=== PATIENT | female | born 1960 | race Caucasian/White ===

== ENCOUNTER 2020-08-03 11:55 | Inpatient (IN) ==
[~2020-08-03 11:55] MED LIST: Buffered Lidocaine 1% SYRIN 1 ml INTRADERM ONE; Lactated Ringers 1000 ml BAG 1,000 ML IV SCH
[2020-08-03] MEDS ORDERED: Heparin 5000 UNITS/ML 1 mL VIAL ONE (12:16)
[2020-08-03] MEDS ORDERED: Clindamycin 900 MG/D5W BAG 900 MG/50 ML BAG IVPB ONE (12:16)
[2020-08-03] MEDS ORDERED: Buffered Lidocaine 1% SYRIN 1 ml INTRADERM ONE (12:16)
[2020-08-03] MEDS ORDERED: Methylene Blue 0.5 % 50 MG/10 ML AMP IV ONE (13:57)
[2020-08-03] MEDS ORDERED: Bupivacaine 0.25% SDV 30 ML ONE (13:58)
[2020-08-03] MEDS ORDERED: Rocuronium 50 mg VIAL 10 mg/ml 5 ml VIAL (50 mg) ONE ×3 (14:09→16:18)
[2020-08-03] MEDS ORDERED: fentaNYL 250 mcg/5 ml 50 MCG/ML 5 ml VIAL (250 MCG) ONE (14:11)
[2020-08-03] MEDS ORDERED: Midazolam 2 mg/2 ml VIAL 1 mg/ml 2 ml VIAL (2 mg) ONE (14:13)
[2020-08-03] MEDS ORDERED: HYDROmorphone 1 MG/1 ML SYRINGE ONE ×2 (15:30→17:40)
[2020-08-03] MEDS ORDERED: Sugammadex 500 MG/5 ML 5 ml VIAL IV PUSH ONE (16:17)
[2020-08-03] MEDS ORDERED: Ondansetron 4 mg VIAL 2 MG/ML 2 ml VIAL ONE ×2 (16:17→17:42)
[2020-08-03] MEDS ORDERED: Dexamethasone IV 4 MG/ML VIAL 1 ml VIAL ONE (16:17)
[2020-08-03] MEDS ORDERED: fentaNYL 100 mcg/2 ml 50 MCG/ML VIAL ONE (16:44)
[2020-08-03] MEDS ORDERED: fentaNYL 100 mcg/2 ml 50 MCG/ML VIAL IV PRN (17:13)
[2020-08-03] MEDS ORDERED: Naloxone 0.4 mg VIAL 0.4 mg/ml 1 ml VIAL IV PRN (17:13)
[2020-08-03] MEDS ORDERED: HYDROmorphone 1 MG/1 ML SYRINGE IV PRN (17:13)
[2020-08-03] MEDS ORDERED: Ondansetron 4 mg VIAL 2 MG/ML 2 ml VIAL IV PRN ×2 (17:13→17:20)
[2020-08-03] MEDS ORDERED: HYDROmorphone 0.5 MG/0.5 ML SYRINGE IV SLOW PU PRN (17:20)
[2020-08-03] MEDS ORDERED: Dextrose 50% Syringe 50 ml 25 GM/50 ML SYRINGE IV PUSH PRN (17:23)
[2020-08-03] MEDS: Lactated Ringers 1000 ml BAG 1,000 ML IV SCH (18:49)
[2020-08-03] MEDS: Famotidine IV 10 MG/ML 2 ml VIAL (20 mg) IV SLOW PU SCH (20:11)
[2020-08-03] MEDS: Heparin 5000 UNITS/ML 1 mL VIAL SUBCUT SCH (23:59)
[2020-08-04] MEDS: Lactated Ringers 1000 ml BAG 1,000 ML IV SCH ×2 (01:00→08:30)
[2020-08-04] MEDS: Heparin 5000 UNITS/ML 1 mL VIAL SUBCUT SCH ×3 (06:29→22:28)
[2020-08-04] MEDS: Famotidine IV 10 MG/ML 2 ml VIAL (20 mg) IV SLOW PU SCH ×2 (08:26→22:30)
[2020-08-04] MEDS: D5W 1/2 NS KCl 20 meq 1000 ml 1,000 ML IV SCH (17:12)
[2020-08-05] MEDS: D5W 1/2 NS KCl 20 meq 1000 ml 1,000 ML IV SCH ×2 (01:18→09:30)
[2020-08-05] MEDS: Heparin 5000 UNITS/ML 1 mL VIAL SUBCUT SCH (06:39)
[2020-08-05] MEDS: Famotidine IV 10 MG/ML 2 ml VIAL (20 mg) IV SLOW PU SCH (07:49)
[2020-08-05 07:50] VITALS: BP 141/65
== END 2020-08-05 10:45 | disposition home or self-care (01) | DRG 403 ==
LOC: AA 11:55 → SSU 17:20
PROVIDERS: ADMIT Surgery; ATTEND Surgery